=== PATIENT | male | born 1980 | race Caucasian/White ===

== ENCOUNTER 2022-08-25 17:44 | Emergency (ER) | payer BC, OTHER ==
[~2022-08-25] VITALS: Ht 180.3 cm; Wt 115.0 kg
[2022-08-25] MEDS ORDERED: AMOX875T2 (18:07)
[2022-08-25] MEDS ORDERED: ACET-897 PO (18:07)
[2022-08-25] MEDS ORDERED: MOTR200T44 PO (18:07)
[2022-08-25] MEDS ORDERED: LIDOCAINE 2% W/ EPINEPHRINE 1.7 ML DENTAL INJ As Ordered ONE (18:12)
[2022-08-25 18:27] VITALS: TEMP 98.3
[2022-08-25] MEDS ORDERED: LIDOCAINE 2% W/EPINEPHRINE 20ML VIAL **PRES FREE INJ ONE ×2 (18:45→18:50)
[2022-08-25] MEDS ORDERED: AMPICILLIN SOD/SULBACTAM SOD 3 GM in D5W MINI-BAG PLUS 100 ML IV ONE (19:20)
[2022-08-25 19:39] LABS: BASO % 0.4 % (0.0-1.0); EOS % 0.5 % (0.0-3.0); HEMATOCRIT 42.3 % (42.0-52.0); LYMPH % 11.9 % (24.0-44.0); MEAN CORPUSCULAR HEMOGLOBIN 30.9 pg (27.0-33.0); MEAN CORPUSCULAR HGB CONC 35.5 g/dl (32.0-36.5); MONO # 0.6 10^3/uL (0.0-0.8); MONO % 6.8 % (2.0-8.0); NEUTROPHILS # 6.5 10^3/uL (1.5-8.5); PLATELET COUNT, AUTOMATED 276 10^3/uL (150-450); RED BLOOD COUNT 4.86 10^6/uL (4.30-6.10); WHITE BLOOD COUNT 8.1 10^3/uL (4.0-10.0)
[2022-08-25] MEDS ORDERED: dexAMETHasone 20MG/5ML VIAL IV ONE (19:50)
[2022-08-25 20:05] LABS: ALBUMIN 4.4 G/DL (3.2-5.2); ALKALINE PHOSPHATASE 79 U/L (46-116); ALT/SGPT 49 U/L (7.0-40); AST/SGOT 48 U/L (<34); BILIRUBIN,DIRECT 0.3 MG/DL (<0.4); BILIRUBIN,TOTAL 0.7 MG/DL (0.3-1.2); BLOOD UREA NITROGEN 15 MG/DL (9-23); CARBON DIOXIDE LEVEL 24 MMOL/L (20-31); CHLORIDE LEVEL 102 MMOL/L (98-107); GLOMERULAR FILTRATION RATE > 60.0 (>60); GLUCOSE, FASTING 112 MG/DL (60-100); SODIUM LEVEL 134 MMOL/L (136-145)
[2022-08-25] MEDS ORDERED: OXYCODONE/APAP 5MG/325MG(HOME DOSE PACK) PO ONE (20:45)
[2022-08-25 21:12] VITALS: BP 132/79; O2SAT 97
== END 2022-08-25 21:13 | disposition home or self-care (01) ==
LOC: M ED 17:44
DX: K04.7 Periapical abscess without sinus (principal); K21.9 Gastro-esophageal reflux disease without esophagitis; F10.10 Alcohol abuse, uncomplicated; Z79.1 Long term (current) use of non-steroidal anti-inflammatories (NSAID); Z79.899 Other long term (current) drug therapy
CPT/HCPCS: 80048; 80076; 85025; 87040; 96372; 96374; 96375; 99284; J0295; J1100

== ENCOUNTER → 2022-08-26 | Day surgery (SDC) | payer OTHER ==
[~2022-08-26] MED LIST: ACET-897 PO; ACETAMINOPHEN 1000MG 100ML IV BAG As Ordered ONE; AMOX875T2; CHLORHEXIDINE GLUCONATE 0.12 % 15ML UDC (PERIDEX ORAL RINSE) As Ordered ONE; HYDROMORPHONE HCL 0.5 MG/ 0.5 ML SYRINGE IV PRN; KETAMINE HCL 200MG/20ML VIAL As Ordered ONE; KETOROLAC 60MG 2ML VIAL As Ordered ONE; LIDOCAINE 2% W/ EPINEPHRINE 1.7 ML DENTAL INJ As Ordered ONE; LR 1,000 ML IV SCH; METOCLOPRAMIDE INJ 10MG/2ML VIAL IV PRN; MIDAZOLAM INJ 2MG/2ML VIAL As Ordered ONE; MOTR200T44 PO; ONDANSETRON 4MG 2ML VIAL As Ordered ONE; ONDANSETRON 4MG 2ML VIAL IV PRN; UNASYN 3GM VIAL As Ordered ONE; fentaNYL 100 MCG/2 ML INJECTION IV PRN; oxyCODONE 5MG TAB PO PRN; propofoL 200 MG/20 ML VIAL As Ordered ONE
[2022-08-26 09:04] LABS: RSV AMPLIFICATION NEGATIVE (NEGATIVE)
[2022-08-26 12:25] VITALS: BP 119/64; TEMP 97.5; O2SAT 99
== END | disposition home or self-care (01) ==
LOC: M SDC 08:00
PROVIDERS: ATTEND Dentist
DX: K04.7 Periapical abscess without sinus (principal); K02.9 Dental caries, unspecified; E66.9 Obesity, unspecified
CPT/HCPCS: 10060; 41899; 87631; 88300; 88305; C1751; C9290; J0131; J0295; J1100; J1885; J2250; J2405

== ENCOUNTER → 2023-03-23 | Outpatient (CLI) | payer OTHER ==
[~2023-03-23] MED LIST changes: -ACETAMINOPHEN 1000MG 100ML IV BAG As Ordered ONE; -CHLORHEXIDINE GLUCONATE 0.12 % 15ML UDC (PERIDEX ORAL RINSE) As Ordered ONE; -HYDROMORPHONE HCL 0.5 MG/ 0.5 ML SYRINGE IV PRN; -KETAMINE HCL 200MG/20ML VIAL As Ordered ONE; -KETOROLAC 60MG 2ML VIAL As Ordered ONE; -LIDOCAINE 2% W/ EPINEPHRINE 1.7 ML DENTAL INJ As Ordered ONE; -LR 1,000 ML IV SCH; -METOCLOPRAMIDE INJ 10MG/2ML VIAL IV PRN; -MIDAZOLAM INJ 2MG/2ML VIAL As Ordered ONE; -ONDANSETRON 4MG 2ML VIAL As Ordered ONE; -ONDANSETRON 4MG 2ML VIAL IV PRN; -UNASYN 3GM VIAL As Ordered ONE; -fentaNYL 100 MCG/2 ML INJECTION IV PRN; -oxyCODONE 5MG TAB PO PRN; -propofoL 200 MG/20 ML VIAL As Ordered ONE
[2023-03-23 10:18] LABS: BASO % 0.7 % (0.0-1.0); EOS # 0.2 10^3/uL (0.0-0.5); HEMATOCRIT 44.7 % (42.0-52.0); HEMOGLOBIN 15.2 g/dl (13.5-17.5); LYMPH # 1.4 10^3/uL (1.5-5.0); LYMPH % 31.3 % (24.0-44.0); MEAN CORPUSCULAR HEMOGLOBIN 30.3 pg (27.0-33.0); MEAN CORPUSCULAR VOLUME 89.2 fl (80.0-96.0); MONO # 0.6 10^3/uL (0.0-0.8); MONO % 12.7 % (2.0-8.0); NEUTROPHILS # 2.3 10^3/uL (1.5-8.5); NEUTROPHILS % 50.6 % (36.0-66.0); PLATELET COUNT, AUTOMATED 260 10^3/uL (150-450); RED BLOOD COUNT 5.01 10^6/uL (4.30-6.10); WHITE BLOOD COUNT 4.5 10^3/uL (4.0-10.0)
[2023-03-23 10:49] LABS: ALKALINE PHOSPHATASE 89 U/L (46-116); ALT/SGPT 82 U/L (7.0-40); AST/SGOT 47 U/L (<34); BILIRUBIN,TOTAL 0.4 MG/DL (0.3-1.2); BLOOD UREA NITROGEN 17 MG/DL (9-23); CALCIUM LEVEL 9.4 MG/DL (8.5-10.1); CARBON DIOXIDE LEVEL 29 MMOL/L (20-31); CHLORIDE LEVEL 104 MMOL/L (98-107); CHOLESTEROL LEVEL 175 MG/DL (<200); CHOLESTEROL RISK RATIO 3.43 (<5); CREATININE FOR GFR 1.08 MG/DL (0.70-1.30); FREE T4 1.01 NG/DL (0.89-1.76); GLOMERULAR FILTRATION RATE > 60.0 (>60); GLUCOSE, FASTING 97 MG/DL (60-100); LDL CHOLESTEROL 96.2 MG/DL (<100); POTASSIUM SERUM 4.5 MMOL/L (3.5-5.1); SODIUM LEVEL 137 MMOL/L (136-145); THYROID STIMULATING HORMONE 1.724 uIU/ML (0.55-4.78); TOTAL PROTEIN 6.9 G/DL (5.7-8.2); TRIGLYCERIDES LEVEL 139 MG/DL (<150)
[2023-03-23 10:54] LABS: HEMOGLOBIN A1c 5.3 % (4.0-6.0)
== END ==
LOC: M PLALAB 07:46
PROVIDERS: ATTEND Physician Assistant
DX: Z13.220 Encounter for screening for lipoid disorders (principal); Z13.29 Encounter for screening for other suspected endocrine disorder

== ENCOUNTER → 2023-11-20 | Outpatient (CLI) | payer OTHER ==
[2023-11-20 10:57] LABS: ALBUMIN 4.2 G/DL (3.2-5.2); ALKALINE PHOSPHATASE 89 U/L (46-116); ALT/SGPT 55 U/L (7.0-40); AST/SGOT 31 U/L (<34); BILIRUBIN,TOTAL 0.8 MG/DL (0.3-1.2); BLOOD UREA NITROGEN 19 MG/DL (9-23); CALCIUM LEVEL 9.7 MG/DL (8.5-10.1); CARBON DIOXIDE LEVEL 29 MMOL/L (20-31); CHLORIDE LEVEL 103 MMOL/L (98-107); CREATININE FOR GFR 1.17 MG/DL (0.70-1.30); GLOMERULAR FILTRATION RATE > 60.0 (>60); GLUCOSE, FASTING 99 MG/DL (60-100); POTASSIUM SERUM 4.4 MMOL/L (3.5-5.1); PROSTATIC SPECIFIC AG MONITOR 0.64 NG/ML (< 4.00); SODIUM LEVEL 136 MMOL/L (136-145); TOTAL PROTEIN 7.5 G/DL (5.7-8.2)
[2023-11-20 10:58] LABS: BASO % 0.5 % (0.0-1.0); EOS # 0.1 10^3/uL (0.0-0.5); HEMATOCRIT 44.6 % (42.0-52.0); HEMOGLOBIN 16.1 g/dl (13.5-17.5); LYMPH % 16.7 % (24.0-44.0); MEAN CORPUSCULAR HEMOGLOBIN 32.4 pg (27.0-33.0); MEAN CORPUSCULAR HGB CONC 36.1 g/dl (32.0-36.5); MEAN CORPUSCULAR VOLUME 89.7 fl (80.0-96.0); MONO # 0.6 10^3/uL (0.0-0.8); MONO % 10.5 % (2.0-8.0); NEUTROPHILS # 4.2 10^3/uL (1.5-8.5); PLATELET COUNT, AUTOMATED 263 10^3/uL (150-450); RED BLOOD COUNT 4.97 10^6/uL (4.30-6.10); WHITE BLOOD COUNT 5.9 10^3/uL (4.0-10.0)
[2023-11-20 10:59] LABS: ESTRADIOL 39.5 PG/ML (<39.8); LUTEINIZING HORMONE 2.7 mIU/ML (1.5-9.3); PROLACTIN 9.39 NG/ML (2.1-17.7)
[2023-11-20 11:00] LABS: FOLLICLE STIMULATING HORMONE 2.3 mIU/ML (1.4-18.1); TOTAL 25(OH) VITAMIN D 42.4 NG/ML (20.0-100.0)
[2023-11-20 11:05] LABS: ERYTHROCYTE SEDIMENTATION RATE 8 mm/hr (0-15)
[2023-11-21 07:08] LABS: DEHYDROEPIANDROSTERONE SULFATE 215 mcg/dL (61-442); SEX HORMONE BINDING GLOBULIN 18 nmol/L (10-50)
== END ==
LOC: M PLALAB 07:52
PROVIDERS: ATTEND Emergency Medicine
DX: Z79.890 Hormone replacement therapy (principal)

== ENCOUNTER → 2024-01-04 | Outpatient (CLI) | payer OTHER ==
[2024-01-04 11:00] LABS: BASO % 0.8 % (0.0-1.0); EOS # 0.2 10^3/uL (0.0-0.5); EOS % 4.3 % (0.0-3.0); HEMATOCRIT 45.3 % (42.0-52.0); HEMOGLOBIN 15.5 g/dl (13.5-17.5); LYMPH # 1.2 10^3/uL (1.5-5.0); LYMPH % 23.4 % (24.0-44.0); MEAN CORPUSCULAR HEMOGLOBIN 30.8 pg (27.0-33.0); MEAN CORPUSCULAR HGB CONC 34.2 g/dl (32.0-36.5); MEAN CORPUSCULAR VOLUME 90.1 fl (80.0-96.0); MONO # 0.6 10^3/uL (0.0-0.8); MONO % 10.7 % (2.0-8.0); NEUTROPHILS # 3.1 10^3/uL (1.5-8.5); NEUTROPHILS % 60.2 % (36.0-66.0); PLATELET COUNT, AUTOMATED 258 10^3/uL (150-450); RED BLOOD COUNT 5.03 10^6/uL (4.30-6.10); WHITE BLOOD COUNT 5.1 10^3/uL (4.0-10.0)
[2024-01-05 07:33] LABS: SEX HORMONE BINDING GLOBULIN 15 nmol/L (10-50)
== END ==
LOC: M LAB 08:00 → M PLALAB 08:00
PROVIDERS: ATTEND Emergency Medicine
DX: Z00.01 Encounter for general adult medical examination with abnormal findings (principal); R86.1 Abnormal level of hormones in specimens from male genital organs; R53.83 Other fatigue; Z79.890 Hormone replacement therapy

== ENCOUNTER → 2024-02-19 | Outpatient (CLI) | payer OTHER ==
[2024-02-19 10:16] LABS: BASO # 0.1 10^3/uL (0.0-0.2); BASO % 0.9 % (0.0-1.0); EOS # 0.2 10^3/uL (0.0-0.5); HEMATOCRIT 46.8 % (42.0-52.0); HEMOGLOBIN 16.4 g/dl (13.5-17.5); LYMPH # 1.4 10^3/uL (1.5-5.0); LYMPH % 24.6 % (24.0-44.0); MEAN CORPUSCULAR HEMOGLOBIN 31.4 pg (27.0-33.0); MEAN CORPUSCULAR VOLUME 89.5 fl (80.0-96.0); MONO # 0.7 10^3/uL (0.0-0.8); NEUTROPHILS # 3.2 10^3/uL (1.5-8.5); NEUTROPHILS % 58.1 % (36.0-66.0); PLATELET COUNT, AUTOMATED 241 10^3/uL (150-450); RED BLOOD COUNT 5.23 10^6/uL (4.30-6.10); WHITE BLOOD COUNT 5.5 10^3/uL (4.0-10.0)
[2024-02-20 08:23] LABS: SEX HORMONE BINDING GLOBULIN 16 nmol/L (10-50)
== END ==
LOC: M PLALAB 08:03
PROVIDERS: ATTEND Emergency Medicine
DX: Z79.890 Hormone replacement therapy (principal)

== ENCOUNTER → 2024-04-02 | Outpatient (CLI) | payer OTHER ==
[2024-04-02 10:45] LABS: BASO # 0.1 10^3/uL (0.0-0.2); EOS # 0.3 10^3/uL (0.0-0.5); EOS % 5.5 % (0.0-3.0); HEMATOCRIT 47.2 % (42.0-52.0); HEMOGLOBIN 16.7 g/dl (13.5-17.5); LYMPH # 1.4 10^3/uL (1.5-5.0); LYMPH % 24.7 % (24.0-44.0); MEAN CORPUSCULAR HGB CONC 35.4 g/dl (32.0-36.5); MEAN CORPUSCULAR VOLUME 87.6 fl (80.0-96.0); MONO # 0.7 10^3/uL (0.0-0.8); MONO % 12.6 % (2.0-8.0); NEUTROPHILS # 3.2 10^3/uL (1.5-8.5); NEUTROPHILS % 55.9 % (36.0-66.0); PLATELET COUNT, AUTOMATED 253 10^3/uL (150-450); RED BLOOD COUNT 5.39 10^6/uL (4.30-6.10); WHITE BLOOD COUNT 5.8 10^3/uL (4.0-10.0)
[2024-04-03 22:33] LABS: SEX HORMONE BINDING GLOBULIN 15 nmol/L (10-50)
== END ==
LOC: M PLALAB 08:16
PROVIDERS: ATTEND Emergency Medicine
DX: Z00.01 Encounter for general adult medical examination with abnormal findings (principal); Z79.890 Hormone replacement therapy; R86.1 Abnormal level of hormones in specimens from male genital organs; R53.83 Other fatigue

== ENCOUNTER → 2024-05-12 | Outpatient (CLI) | payer OTHER ==
[2024-05-12 11:14] LABS: BASO % 0.6 % (0.0-1.0); EOS # 0.1 10^3/uL (0.0-0.5); EOS % 1.9 % (0.0-3.0); HEMOGLOBIN 15.7 g/dl (13.5-17.5); LYMPH # 1.3 10^3/uL (1.5-5.0); LYMPH % 23.9 % (24.0-44.0); MEAN CORPUSCULAR HEMOGLOBIN 29.7 pg (27.0-33.0); MEAN CORPUSCULAR HGB CONC 33.4 g/dl (32.0-36.5); MONO # 0.6 10^3/uL (0.0-0.8); MONO % 11.1 % (2.0-8.0); NEUTROPHILS # 3.3 10^3/uL (1.5-8.5); NEUTROPHILS % 61.9 % (36.0-66.0); PLATELET COUNT, AUTOMATED 263 10^3/uL (150-450); RED BLOOD COUNT 5.28 10^6/uL (4.30-6.10); WHITE BLOOD COUNT 5.4 10^3/uL (4.0-10.0)
[2024-05-13 09:37] LABS: SEX HORMONE BINDING GLOBULIN 15 nmol/L (10-50)
== END ==
LOC: M PLALAB 08:08
PROVIDERS: ATTEND Emergency Medicine
DX: Z00.01 Encounter for general adult medical examination with abnormal findings (principal); R86.2 Abnormal level of other drugs, medicaments and biological substances in specimens from male genital organs; Z79.890 Hormone replacement therapy; R53.83 Other fatigue

== ENCOUNTER → 2024-06-13 | Outpatient (CLI) | payer OTHER ==
[2024-06-13 11:18] LABS: CHOLESTEROL RISK RATIO 4.79 (<5); HDL CHOLESTEROL 33.4 MG/DL (>40); LDL CHOLESTEROL 95.2 MG/DL (<100); NON-HDL-C 126.6 MG/DL
[2024-06-13 11:22] LABS: TOTAL 25(OH) VITAMIN D 54.5 NG/ML (20.0-100.0)
== END ==
LOC: M PLALAB 08:22
PROVIDERS: ATTEND Physician Assistant
DX: Z13.220 Encounter for screening for lipoid disorders (principal)

== ENCOUNTER → 2024-06-13 | Outpatient (CLI) | payer OTHER ==
[2024-06-13 11:16] LABS: BASO % 0.7 % (0.0-1.0); EOS # 0.2 10^3/uL (0.0-0.5); EOS % 2.6 % (0.0-3.0); HEMATOCRIT 50.4 % (42.0-52.0); HEMOGLOBIN 17.3 g/dl (13.5-17.5); LYMPH # 1.4 10^3/uL (1.5-5.0); LYMPH % 23.9 % (24.0-44.0); MEAN CORPUSCULAR HEMOGLOBIN 30.2 pg (27.0-33.0); MEAN CORPUSCULAR HGB CONC 34.3 g/dl (32.0-36.5); MEAN CORPUSCULAR VOLUME 88.1 fl (80.0-96.0); MONO # 0.7 10^3/uL (0.0-0.8); MONO % 12.3 % (2.0-8.0); NEUTROPHILS # 3.5 10^3/uL (1.5-8.5); NEUTROPHILS % 59.8 % (36.0-66.0); PLATELET COUNT, AUTOMATED 276 10^3/uL (150-450); RED BLOOD COUNT 5.72 10^6/uL (4.30-6.10); WHITE BLOOD COUNT 5.9 10^3/uL (4.0-10.0)
[2024-06-14 09:02] LABS: SEX HORMONE BINDING GLOBULIN 16 nmol/L (10-50)
== END ==
LOC: M PLALAB 08:19
PROVIDERS: ATTEND Emergency Medicine
DX: Z79.890 Hormone replacement therapy (principal)

== ENCOUNTER → 2024-11-11 | Outpatient (CLI) | payer OTHER ==
[2024-11-11 12:22] LABS: BASO # 0.1 10^3/uL (0.0-0.2); BASO % 0.8 % (0.0-1.0); EOS # 0.2 10^3/uL (0.0-0.5); EOS % 3.2 % (0.0-3.0); LYMPH # 1.3 10^3/uL (1.5-5.0); LYMPH % 19.4 % (24.0-44.0); MONO # 0.7 10^3/uL (0.0-0.8); MONO % 11.4 % (2.0-8.0); NEUTROPHILS # 4.2 10^3/uL (1.5-8.5); NEUTROPHILS % 64.6 % (36.0-66.0); PLATELET COUNT, AUTOMATED 263 10^3/uL (150-450)
[2024-11-12 09:41] LABS: SEX HORMONE BINDING GLOBULIN 15.0 nmol/L (10-50)
[2024-11-15 19:07] LABS: TESTOSTERONE FREE (DIRECT) 291.8 pg/mL (35.0-155.0); TESTOSTERONE TOTAL FOR T&D 976.0 ng/dL (250-1100)
== END ==
LOC: M PLALAB 08:51
PROVIDERS: ATTEND Emergency Medicine
DX: Z00.01 Encounter for general adult medical examination with abnormal findings (principal); Z79.890 Hormone replacement therapy; R86.1 Abnormal level of hormones in specimens from male genital organs; R53.83 Other fatigue

== ENCOUNTER → 2024-12-11 | Outpatient (CLI) | payer OTHER | LOC: M PLAIMG 08:06 | PROVIDERS: ATTEND Physician Assistant | DX: M25.512 Pain in left shoulder (principal) ==

== ENCOUNTER → 2024-12-17 | Outpatient (CLI) | payer OTHER ==
[2024-12-17 12:38] LABS: BASO # 0.0 10^3/uL (0.0-0.2); BASO % 0.7 % (0.0-1.0); EOS # 0.2 10^3/uL (0.0-0.5); EOS % 3.1 % (0.0-3.0); LYMPH # 1.2 10^3/uL (1.5-5.0); LYMPH % 21.2 % (24.0-44.0); MONO # 0.6 10^3/uL (0.0-0.8); MONO % 10.5 % (2.0-8.0); NEUTROPHILS # 3.7 10^3/uL (1.5-8.5); NEUTROPHILS % 63.8 % (36.0-66.0); PLATELET COUNT, AUTOMATED 263 10^3/uL (150-450)
[2024-12-18 09:56] LABS: SEX HORMONE BINDING GLOBULIN 14.0 nmol/L (10-50)
[2024-12-22 19:06] LABS: TESTOSTERONE FREE (DIRECT) 198.4 pg/mL (35.0-155.0); TESTOSTERONE TOTAL FOR T&D 624.0 ng/dL (250-1100)
== END ==
LOC: M PLALAB 08:15
PROVIDERS: ATTEND Emergency Medicine
DX: Z00.01 Encounter for general adult medical examination with abnormal findings (principal); Z79.890 Hormone replacement therapy; R86.1 Abnormal level of hormones in specimens from male genital organs; R53.83 Other fatigue